=== PATIENT | female | born 1960 | race Caucasian/White ===

== ENCOUNTER 2023-10-06 06:16 | Day surgery (SDC) | payer MEDICARE, BC, SELFPAY ==
[2023-10-06 12:49] VITALS: BMI 27.4
[2023-10-06 12:50] VITALS: BP 153/83; BMI 27.4
[2023-10-06] MEDS: TRANSDERM-SCOP 1 PATCH TRANSDERM (13:43)
[2023-10-06 17:45] VITALS: BP 120/87; BP_SYST 13
[2023-10-06 18:00] VITALS: BP 142/78; BP_SYST 17
[2023-10-06 18:15] VITALS: BP 132/71; BP_SYST 16
[2023-10-06 18:30] VITALS: BP 136/89
[2023-10-06 18:45] VITALS: BP 129/78
== END 2023-10-06 18:58 | disposition home or self-care (01) ==
LOC: SDS 06:16
PROVIDERS: ATTENDING PHYSICIAN Internal Medicine Gastroenterology
DX: D12.7 Benign neoplasm of rectosigmoid junction (principal); K63.5 Polyp of colon; K57.30 Diverticulosis of large intestine without perforation or abscess without bleeding; K62.1 Rectal polyp; K64.0 First degree hemorrhoids
CPT/HCPCS: 45338; 88305